=== PATIENT | male | born 1995 | race Two or more races ===

== ENCOUNTER 2024-01-19 10:43 | Emergency (ER) | payer MEDICAID ==
[~2024-01-19] VITALS: Ht 180.3 cm; Wt 70.0 kg
[2024-01-19 11:51] LABS: Albumin 4.9 g/dL (3.2-4.8); Alkaline Phosphatase 93 U/L (46-116); Anion Gap 8 (5-15); Aspartate Aminotransferase 15 U/L (13-40); BUN/Creatinine Ratio 9.7 (10.0-20.0); Basophils # (auto) 0.1 10 ^3/uL (0-0.2); Basophils % (auto) 1.1 % (0.0-2.0); Blood Urea Nitrogen 11 mg/dL (9-23); Calcium 9.7 mg/dL (8.7-10.4); Carbon Dioxide 24 mmol/L (20-30); Chloride 104 mmol/L (98-107); Eosinophils # (auto) 0.2 10 ^3/uL (0-0.8); Eosinophils % (auto) 2.5 % (0.0-7.0); Glucose 125 mg/dL (74-106); Hematocrit 49.4 % (41.0-53.0); Hemoglobin 17.5 g/dL (13.5-17.5); Lymphocytes # (auto) 3.4 10 ^3/uL (0.4-5.4); Lymphocytes % (auto) 43.8 % (10.0-50.0); Magnesium 1.9 mg/dL (1.6-2.6); Mean Corpuscular Hemoglobin 30.5 pg (28.0-32.0); Mean Corpuscular Hgb Conc. 35.3 g/dL (32.0-36.0); Mean Corpuscular Volume 86.3 fL (80.0-100.0); Monocytes # (auto) 0.6 10 ^3/uL (0-1.3); Monocytes % (auto) 7.5 % (0.0-12.0); Neutrophils # (auto) 3.5 10 ^3/uL (1.6-8.6); Neutrophils % (auto) 45.1 % (37.0-80.0); Nucleated Red Blood Cells % 0.3 %; Platelet Count (auto) 257 10^3/uL (140-450); Potassium 3.6 mmol/L (3.5-5.1); Red Blood Cells 5.73 10^6/uL (4.5-5.90); Sodium 136 mmol/L (136-145); White Blood Cell 7.8 10^3/uL (4.4-10.8)
[2024-01-19 11:52] LABS: Bilirubin, Total 1.7 mg/dL (0.2-1.0); Phosphorus 2.4 mg/dL (2.4-5.1); Total Protein 8.3 g/dL (5.7-8.2)
[2024-01-19 11:54] LABS: Alanine Aminotransferase 9 U/L (7-40)
[2024-01-19 13:37] LABS: Urine Bacteria None Seen /hpf (None Seen)
[2024-01-19 14:16] LABS: Urine Blood Negative /uL (Negative); Urine Clarity Clear (Clear); Urine Color Colorless (Yellow); Urine Protein, UAD Negative (Negative); Urine Specific Gravity 1.008 (1.001-1.035); Urine Urobilinogen Normal (Negative); Urine WBC <1 /hpf (0 - 3); Urine pH 5.5 (5.0-9.0)
[2024-01-19 14:19] LABS: Amphetamine Screen, Urine Neg (NEGATIVE)
[2024-01-19 14:20] LABS: Barbiturate Scree,Urine Neg (NEGATIVE); Benzodiazephine Screen, Urine Neg (NEGATIVE); Cannabinoid Screen, Urine Pos (NEGATIVE); Cocaine Screen, Urine Neg (NEGATIVE); Opiate Scree,Urine Neg (NEGATIVE); Phencyclidine Screen, Urine Neg (NEGATIVE)
[2024-01-19] MEDS: LORazepam 0.5 MG TAB PO ONE (14:53)
[2024-01-19 14:54] VITALS: BP 135/75; PULSE 70; RESP 11; TEMP 97.3; O2SAT 99
== END 2024-01-19 14:57 | disposition home or self-care (01) ==
LOC: ER 10:43
DX: R00.2 Palpitations (principal); Z79.899 Other long term (current) drug therapy
CPT/HCPCS: 36415; 71045; 80053; 80307; 81001; 83735; 84100; 84443; 84484; 85025; 93005